=== PATIENT | male | born 1935 | race Caucasian/White ===

== ENCOUNTER → 2016-07-14 | Outpatient (CLI) | payer MEDICARE, OTHER ==
[2016-07-14 10:59] LABS: BICARBONATE 27.2 MEQ/L (21.0-32.0); POTASSIUM 4.3 MEQ/L (3.5-5.1)
== END ==
LOC: CLAB 10:18
PROVIDERS: ATTEND Internal Medicine Interventional Cardiology
DX: I10 Essential (primary) hypertension (principal)
CPT/HCPCS: 36415; 80048

== ENCOUNTER 2017-03-14 06:11 | Day surgery (SDC) | payer MEDICARE, OTHER ==
[2017-03-14] VITALS (7 sets, daily range): BP systolic 124–138; BP diastolic 70–77; PULSE 60–80; RESP 18; TEMP 97.6–98; O2SAT 96–97
[2017-03-14] MEDS ORDERED: LACTATED RINGER'S 1000 ML IV PRN (06:45)
[2017-03-14] MEDS ORDERED: SODIUM CHLORID 0.9% 500 ML IV PRN (06:45)
[2017-03-14] MEDS ORDERED: POVIDONE IODINE 5% (ANTISEPSIS KIT) 4 APPLICATIONS EACH NARE PRN (06:45)
[2017-03-14] MEDS ORDERED: METOPROLOL TARTRATE 25 MG TAB PO PRN (06:45)
[2017-03-14] MEDS ORDERED: SODIUM CHLORID 0.9% 500 ML INJ 500 ML IV SCH (06:45)
[2017-03-14] MEDS ORDERED: CHLORHEXIDINE GLUCONATE 2 % 1 PACK (2 CLOTHS) TOPICAL PRN (06:45)
[2017-03-14] MEDS ORDERED: LORazepam 1 MG TAB SL SCH (06:45)
[2017-03-14 06:58] LABS: AUTOMATED NEUTROPHIL # 3.5 TH/MM3 (1.8-7.7); BASOPHIL # 0.1 TH/MM3 (0-0.2); BASOPHIL % 0.7 % (0.0-2.0); EOSINOPHIL # 0.3 TH/MM3 (0-0.4); EOSINOPHIL % 3.9 % (0.0-4.0); HEMATOCRIT 47.2 % (39.0-51.0); HEMOGLOBIN 15.9 GM/DL (13.0-17.0); LYMPH % 34.1 % (9.0-44.0); LYMPHOCYTE # 2.4 TH/MM3 (1.0-4.8); MEAN CELL VOLUME 92.3 FL (80.0-100.0); MEAN CORPUSCULAR HEMOGLOBIN 31.2 PG (27.0-34.0); MEAN CORPUSCULAR HGB CONC 33.8 % (32.0-36.0); MEAN PLATELET VOLUME 7.7 FL (7.0-11.0); MONO % 11.1 % (0.0-8.0); MONOCYTE # 0.8 TH/MM3 (0-0.9); NEUT % 50.2 % (16.0-70.0); PLATELET COUNT 234 TH/MM3 (150-450); RED BLOOD COUNT 5.11 MIL/MM3 (4.50-5.90); RED CELL DISTRIBUTION WIDTH 13.4 % (11.6-17.2)
[2017-03-14] MEDS ORDERED: PROS5TAB PO (07:02)
[2017-03-14] MEDS ORDERED: FISHOIL PO (07:02)
[2017-03-14] MEDS ORDERED: APIX5TAB PO (07:02)
[2017-03-14] MEDS ORDERED: HYDR-3799 PO (07:02)
[2017-03-14] MEDS ORDERED: VESI10TA2 PO (07:02)
[2017-03-14] MEDS ORDERED: MULT400T PO (07:02)
[2017-03-14] MEDS ORDERED: LOSA50TA PO (07:02)
[2017-03-14] MEDS ORDERED: METO25TA3 PO (07:02)
[2017-03-14] MEDS ORDERED: BYST5TAB2 PO (07:02)
[2017-03-14] MEDS ORDERED: ROSU10 PO (07:02)
[2017-03-14] MEDS ORDERED: META1TAB17 PO (07:02)
[2017-03-14] MEDS ORDERED: RAPA8CAP PO (07:02)
[2017-03-14 07:05] LABS: INTERNATIONAL NORMALIZED RATIO 1.1 RATIO; PROTHROMBIN TIME - PATIENT 10.7 SEC (9.8-11.6)
[2017-03-14 07:14] LABS: BICARBONATE 25.8 MEQ/L (21.0-32.0); CREATININE 1.88 MG/DL (0.60-1.30)
[2017-03-14] MEDS ORDERED: HEPARIN-NS/PF INJ 1,500 ML ONE (07:50)
[2017-03-14] MEDS ORDERED: LEVOFLOXACIN 500 MG PREMIX INJ 100 ML IV ONE (07:50)
[2017-03-14] MEDS ORDERED: HEPARIN-D5W 25,000 U/250 ML 250 ML ONE (07:51)
[2017-03-14] MEDS ORDERED: ISOPROTERENOL HCL 1 MG/5 ML AMP ONE (07:51)
[2017-03-14] MEDS ORDERED: HEPARIN SODIUM - IV 10,000 UNITS/10 ML VIAL ONE (07:52)
[2017-03-14] MEDS ORDERED: PROTAMINE SULFATE 50 MG/5 ML VIAL ONE (07:52)
--- NOTE | 2017-03-14 10:32 | CATHPROC ---
UMicIt HIS Report Study Information Study Number Admission Scheduled Start Study Start [id number] Mar 14 2017 6:11AM 03/14/2017 Mar 14 2017 6:48AM [place] [facility] Electrophysiology Study Admit Source Facility Department Other [facility] - [facility] Physician and Clinical Staff Initial Zehra Foster [employer] Sabi Deleon [facility] [employer] Nani Villatoro,RT(R) TECH2 Other Anesthesia, ELIGIBILITY COUNSELOR Recorder Sonia Cary,ÁNGELA Recorder Smiley Ace RN Scrub Rigoberto Carlson,RT(R) Procedures Performed Procedure Location (Site) Vessel Name Ablation Procedure ICE CATHETER INSERT Fem Vein (left) Femoral Vein RF Ablation LT. ATRIUM LT. ATRIUM Equipment Time Welt Sewer Description Size Mfg Part Number Used/Scraped NEEDLE, TRANSSEPTAL NR 98 [id number] 08:10 [facility] Used C1 *[id number] CATHETER, TACTICATH ABLAT BUNDLE 08:10 [facility] Used 65 BUNDLE *[id number] BUNDLE [id number] CATHETER, FR7 OPTIMA SPIRAL 08:10 [facility] FR7 *[id number]- Used BUNDLE BUNDLE [id number] 08:10 [facility]UND[facility] CATHETER, JSN, QUAD BUNDLE FR 5 *[id number]- Used BUNDLE [id number] 08:10 BUNDLE-[facility] CATHETER, JSN, QUAD BUNDLE FR 5 *[id number]- Used BUNDLE [id number] 15:54 BUNDLE-[facility] CATHETER, JSN, QUAD BUNDLE FR 5 *[id number]- Used BUNDLE [id number] SET, COOL POINT TUBING 08:10 BUNDLE-[facility] *[id number]- Used BUNDLE BUNDLE SHEATH, FR8.5 STEERABLE SM 08:10 BUNDLE-[facility] 71CM [id number] Used 71CM BUNDLE SHEATH, FR8.5 STEERABLE SM 15:54 BUND[facility] 71CM [id number] Used 71CM BUNDLE COVER, TRANSDUCER CABLE 612-113 08:10 [employer] Used ACUNAV *[id number] 15:54 CORDIS/PACER SHEATH, FR10 MENDOZA 11CM FR 10 Used *[id number] 08:10 CORDIS/PACER SHEATH, FR10 MENDOZA 11CM FR 10 Used *[id number] 08:36 CORDIS/PACER SHEATH, FR9 MENDOZA 11CM FR 9 [id number] Used 15:54 CORDIS/PACER SHEATH, FR9 MENDOZA 11CM FR 9 [id number] Used [id number] 15:54 [employer] P[employer], CCL CUSTOM * Used *[id number] 08:10 [employer] PACK, CCL CUSTOM * Used *[id number] 08:10 [employer] SHEATH, FR4.5 PRELUDE 11CM FR 4.5 Used [id number]- 15:54 [employer] SHEATH, FR4.5 PRELUDE 11CM FR 4.5 Used 035ACT [id number] 15:54 NAMIC TUBING, HIGH PRESSURE 48" 48" Used *[id number] 08:10 NAMIC TUBING, HIGH PRESSURE 48" 48" Used *[id number] 08:10 NAMIC TUBING, HIGH PRESSURE 48" 48" Used *[id number] 08:10 [facility] BLANKET,WARM AIR CCL * Used *[id number] 08:10 [facility] MEDICAL ELECTRODE KIT, NATHANIEL X SURFACE * Used *[id number] 08:10 [facility] MEDICAL SHEATH, EPS, FR6 FAST CATH FR 6 Used *[id number] 255900 15:54 [facility] MEDICAL SHEATH, EPS, FR6 FAST CATH FR 6 Used *[id number] 15:54 [facility] MEDICAL SHEATH, EPS, FR7 FAST CATH FR 7 [id number] Used 08:10 [facility] MEDICAL SHEATH, EPS, FR7 FAST CATH FR 7 [id number] Used [id number] 08:10 [facility] MEDICAL SHEATH, EPS, FR8 FAST CATH FR 8 Used *[id number] CATHETER, ACUNAV FR10 ICE [id number] 09:04 GEN FR 10 Used (GEN) *[id number] History: Allergies Allergy Reaction Sulfa (Sulfonamide Antibiotics) History: Risk Factors Hypertension Dyslipidemia Yes Yes Labs Hgb (g/dl) Hct (%) RBC (MIL/MM3) WBC (l/cumm) Platelets (thousands) 11.60-17.00 35.00-51.00 4.00-5.90 4.00-11.00 150.00-450.00 15.0 47 5 7 234 Glucose (mg/dl) BUN (mg/dl) Creatinine (mg/dl) BUN:Creatinine (1:x) 74.00-106.00 7.00-18.00 0.50-1.30 10.00-20.00 109 25 1.8 13.9 Na (meq/l) K (meq/l) 136.00-145.00 3.50-5.10 140 4.3 INR (PTT:PT) 0.90-1.10 1.1 Medication Medication Total Dose (Bolus/Oral) Medication Total Dosage/Unit 1% XYLOCAINE 40 mL HEPARIN 44589 units PROTAMINE 40 mg Medications (Bolus/Oral) Medication Time Given Dosage/Unit Administered By Reason 1% XYLOCAINE 03/14/2017 8:53:10 AM 20 mL Zehra Zurita 20 mL 1% XYLOCAINE given in lab by Zehra Zurita in Left Groin via Subcutaneous. Ordered by Joshua Zurita 1% XYLOCAINE 03/14/2017 8:56:55 AM 20 mL Zehra Zurita 20 mL 1% XYLOCAINE given in lab by Zehra Zurita in Right Groin via Subcutaneous. Ordered by Alex Zurita. HEPARIN 03/14/2017 9:04:33 AM 79908 units Anesthesia, ELIGIBILITY COUNSELOR As per physicians v erbal order 52743 units HEPARIN given in lab by Anesthesia, ELIGIBILITY COUNSELOR via Peripheral IV. Ordered by Zehra Zurita. [place] son: As per physicians verbal order. HEPARIN 03/14/2017 9:23:26 AM 1000 units Anesthesia, ELIGIBILITY COUNSELOR As per physicians v erbal order 1000 units HEPARIN given in lab by Anesthesia, ELIGIBILITY COUNSELOR via Peripheral IV. Ordered by Zehra Zurita. Reas on: As per physicians verbal order. PROTAMINE 03/14/2017 10:20:15 AM 40 mg Anesthesia, ELIGIBILITY COUNSELOR As per physicians ve rbal order 40 mg PROTAMINE given in lab by Anesthesia, ELIGIBILITY COUNSELOR via Peripheral IV. Ordered by Zehra Zurita. Reason: As per physicians verbal order. Medication (Drip) Medication Time Given Dosage/Unit Concentration/Unit Diluent (ml) Solution HEPARIN DRIP 03/14/2017 9:24:42 AM 100 units/hr 87349 units 250 D5W 100 units/hr HEPARIN DRIP given in lab by Anesthesia, ELIGIBILITY COUNSELOR via Peripheral IV. Pump/Drip Flow = 1 ml/h r [place] [address] units in 250 ml. Ordered by Zehra Zurita. Reason: As per physicians verbal order. ISUPREL 03/14/2017 9:58:12 AM 20 mcg/min 1 mg 250 NaCl .9 20 mcg/min ISUPREL given in lab by Anesthesia, ELIGIBILITY COUNSELOR via Peripheral IV. Pump/Drip Flow = 300 ml/hr usi ng NaCl .9 with a concentration of 1 mg in 250 ml. Ordered by Zehra Zurita. Reason: As per physicians verbal order. LEVAQUIN 03/14/2017 8:10:12 AM 100 mL/hr 500 100 NaCl .9 100 mL/hr LEVAQUIN given in lab by Anesthesia, ELIGIBILITY COUNSELOR via Peripheral IV. Pump/Drip Flow = 0 ml/hr using NaCl .9 with a concentration of 500 in 100 ml. Ordered by Zehra Zurita. Reason: As per physicians verbal order. for reyes catheter insertion. Initial Case Assessment Cardiovascular HR Rhythm NIBP Chest Pain 60 ap 194/101 0 Edema Present Skin color Skin None Normal Warm Dry Circulatory - Right Pulses Dorsalis Pedis 1 Scale (0,1,2,3,4,d) Circulatory - Left Pulses Dorsalis Pedis 1 Scale (0,1,2,3,4,d) Circulatory - Lower Extremities Color Lower Right Color Lower Left Normal Normal Neurological State Oriented to time-place- Alert Moves all extremities person Respiration - General Respiration Rate SpO2 (%) (B/min) 18 99 Final Case Assessment Cardiovascular HR Rhythm NIBP Chest Pain 95 SR 123/65 0 Edema Present Skin color Skin None Normal Warm Dry Circulatory - Right Pulses Dorsalis Pedis 1 Scale (0,1,2,3,4,d) Circulatory - Left Pulses Dorsalis Pedis 1 Scale (0,1,2,3,4,d) Circulatory - Lower Extremities Color Lower Right Color Lower Left Normal Normal Neurological State Oriented to time-place- Drowsy Moves all extremities person Respiration - General Respiration Rate SpO2 (%) O2 (lpm) (B/min) 16 96 4 Chronological Log Time Study Chronological Log 7:50:00 Anesthesia at bedside. Assumes care of patient. Adam 7:50:00 Patient arrived via Bed. 7:50:07 Patient Name, D.O.B, / Armband Verified By R.N. 7:50:18 Consent signed by the physician and the patient and verified by the [facility] staff. 7:50:29 Pre-op and post- op instructions given; patient acknowledges understanding of instructions. 7:50:59 Verbal Stimulation=2 Physical Stimulation=2 Airway=2 Respiration=2 TOTAL=8. (0=absent, 1=li mited, 2=present) 7:51:27 Patient has been NPO for More than 6Hrs. 7:51:28 Skin Breakdown- none per pt 7:51:38 Patient Warmer Placed on the Table. 7:51:39 Disposable Defibrillator Pads Placed On Patient. 7:51:39 Rudolph Prominences Protected 7:51:41 A # 20 IV was noted in the Antecubital (left). Grade = 0 0.9ns kvo 7:51:42 A # 20 IV was noted in the Antecubital (right). Grade = 0 0.9ns kvo 7:51:42 History and physical on the chart. 7:55:00 [facility] rep present 7:56:00 paged Assessment: Initial Case, HR=60 BPM, Rhythm=ap, RFAB=017/101 mmhg, Chest Pain=0, Edema=None, Color=Normal, Skin = Warm, Dry Right Pulses: Dl Ped=1 Left Pulses: Dl Ped=1 7:56:23 Lower Right Extremities: Color=Normal Lower Left Extremities: Color=Normal Neurological: State=Alert, Ox3, YOUNG Respiration: Resp=18 B/min, SpO2=99 % 7:58:23 [facility] rep set PM at VVI [address] Fong order. 8:03:11 Table restraints applied according to hospital policy 100 mL/hr LEVAQUIN given in lab by Anesthesia, ELIGIBILITY COUNSELOR via Peripheral IV. Pump/Drip Flow = 0 ml/hr using NaCl .9 with 8:10:12 a concentration of 500 in 100 ml. Ordered by Zehra Zurita. Reason: As per physicians verbal order. for reyes catheter insertion. 8:13:33 responded 8:14:54 Anesthesiologist paged. 8:17:03 Anesthesiologist present for intubation. a #14fr reyes catheter was inserted using aseptic technique. Clear yellow urine returns. Secured to left leg and bag to 8:17:04 bedside drainage. 8:27:11 Bilateral groins prepped with 2% chlorhexidine. 8:32:40 Sterile drape applied. 8:32:58 Reference ECG taken 8:36:09 MD paged 8:36:33 MD responded 8:43:48 MD arrived. Time Out. Correct patient, procedure, procedure equipment, site and side verified with physician present. Time 8:48:41 concurred by MD, individual staff and ELIGIBILITY COUNSELOR. Time Out #2 - Consents verified, patient in correct position, all results are labled and display ed, safety precautions 8:49:46 taken, antibiotics administered. Time out concurred by MD, individual staff and ELIGIBILITY COUNSELOR in procedur e 8:49:48 Case Start 8:50:02 DELANEY commenced. 8:51:51 DELANEY completed and negative. Setting up for EP and commencing with EPS. 8:52:58 Vascular access was obtained in the Fem Vein (left). 8:53:10 20 mL 1% XYLOCAINE given in lab by Zehra Zurita in Left Groin via Subcutaneous. Ordered by Zehra Zurita. 8:53:17 Vascular access was obtained in the Fem Vein (left). 8:53:37 Vascular access was obtained in the Fem Vein (left). 8:53:58 Vascular access was obtained in the Fem Vein (left). 8:54:19 Vascular access was obtained in the Fem Art (left). 8:54:33 A SHEATH, EPS, FR6 FAST CATH FR 6 was advanced into the Fem Vein (left) using the Modified S eldinger technique. 8:54:58 A SHEATH, EPS, FR7 FAST CATH FR 7 was advanced into the Fem Vein (left) using the Modified S eldinger technique. 8:55:08 A SHEATH, FR10 MENDOZA 11CM FR 10 was advanced into the Fem Vein (left) using the Modified [place] technique. 8:55:16 A SHEATH, FR4.5 PRELUDE 11CM FR 4.5 was advanced into the Fem Art (left) using the Modified Seldinger technique. 8:56:55 20 mL 1% XYLOCAINE given in lab by Zehra Zurita in Right Groin via Subcutaneous. Ordered by Zehra Zurita. 8:58:05 Vascular access was obtained in the Fem Vein (right). 8:58:35 A SHEATH, EPS, FR8 FAST CATH FR 8 was advanced into the Fem Vein (right) using the Modified Seldinger technique. A CATHETER, JSN, QUAD BUNDLE FR 5 was advanced vis Fem Vein (left) and placed in the CS. Placem ent was visually 9:01:55 confirmed under fluoroscopy. A CATHETER, JSN, QUAD BUNDLE FR 5 was advanced vis Fem Vein (left) and placed in the HIS. Place ment was 9:02:20 visually confirmed under fluoroscopy. 9:03:05 CATHETER, ACUNAV FR10 ICE (GEN) FR 10 Was Postioned. A SHEATH, FR8.5 STEERABLE SM 71CM BUNDLE 71CM was exchanged in the Fem Vein (right). This was n ecessary in 9:03:15 order for catheter support. 9:03:27 [place] needle in. 9:03:28 Beginning Temp 35.6 53722 units HEPARIN given in lab by Anesthesia, ELIGIBILITY COUNSELOR via Peripheral IV. Ordered by Jerald Zurita Reason: As per 9:04:33 physicians verbal order. 9:05:15 A eps was advanced to the right atrium and passed through the septal wall to the left atrium . 9:05:25 [place] needle out. 9:06:56 After removing the current catheter a catheter was advanced over a wire. A CATHETER, FR7 OPTIMA SPIRAL BUNDLE FR7 was advanced via Fem Vein (right) and placed in the LA . Placement 9:06:57 was visually confirmed under fluoroscopy. 9:12:49 Mapping in progress. 9:16:29 Activated Clotting Time Drawn 9:19:46 Mapping complete 9:20:06 After removing the current catheter a catheter was advanced over a wire. A CATHETER, TACTICATH ABLAT 65 BUNDLE was advanced vis Fem Vein (right) and placed in the LA. P lacement was 9:21:35 visually confirmed under fluoroscopy. 9:21:54 RF Ablation of the LT. ATRIUM with a CATHETER, TACTICATH ABLAT 65 BUNDLE. 9:22:00 Ablation in progress. 9:22:16 ACT (Normal Range 90-180) = 326 1000 units HEPARIN given in lab by Anesthesia, ELIGIBILITY COUNSELOR via Peripheral IV. Ordered by Zehra Zurita Reason: As per 9:23:26 physicians verbal order. 100 units/hr HEPARIN DRIP given in lab by Anesthesia, ELIGIBILITY COUNSELOR via Peripheral IV. Pump/Drip Flow = 1 ml/hr using D5W 9:24:42 [place] [address] units in 250 ml. Ordered by Zehra Zurita. Reason: As per physici ans verbal order. 9:34:09 Activated Clotting Time Drawn 9:40:03 ACT (Normal Range 90-180) = 358 9:47:44 Ablation catheter was removed A CATHETER, FR7 OPTIMA SPIRAL BUNDLE FR7 was advanced via Fem Vein (right) and placed in the LA . Placement 9:48:14 was visually confirmed under fluoroscopy. 9:48:32 Mapping in progress. 9:50:39 Mapping completed. 9:51:34 Noted an area requiring further attention. Ablation resumed. A CATHETER, TACTICATH ABLAT 65 BUNDLE was advanced vis Fem Vein (right) and placed in the LA. P lacement was 9:57:45 visually confirmed under fluoroscopy. 9:57:52 RF Ablation of the LT. ATRIUM with a CATHETER, TACTICATH ABLAT 65 BUNDLE. 9:58:04 Ablation complete. Rhythm change to NSR. Tacticath Ablation cath out. Mapping catheter in. 20 mcg/min ISUPREL given in lab by Anesthesia, ELIGIBILITY COUNSELOR via Peripheral IV. Pump/Drip Flow = 300 ml/ hr using NaCl .9 9:58:12 with a concentration of 1 mg in 250 ml. Ordered by Zehra Zurita. Reason: As per physicians lisa bal order. 10:08:24 Isuprel drip stopped. 10:14:51 End of case Temp 35.6 10:16:52 All remaining catheters removed. A SHEATH, FR9 MENDOZA 11CM FR 9 was exchanged in the Fem Vein (right). This was necessary in or eduardo to minimize 10:17:15 site leakage. 10:18:00 Sheath(s) left in place, 0.9ns kvo connecte, secures, and will be removed in Holding Area 10:18:36 Ablation procedure performed: AFIB. 10:18:41 EP Procedure was performed. 40 mg PROTAMINE given in lab by Anesthesia, ELIGIBILITY COUNSELOR via Peripheral IV. Ordered by Zehra Zurita. Reason: As per :20:15 physicians verbal order. 10:20:49 PACU called. Spoke to Nani. 10:21:18 Sterile dressing applied to bilateral groin sites. 10:23:44 Pacemaker turned back on by [facility] rep DDD mode rate 60 per MD order. 10:24:21 Pt extubated to supplemental O2 @ 4l/min NC by anesthesia. Pt breathing independently. 10:25:19 Activated Clotting Time Drawn Assessment: Final Case, HR=95 BPM, Rhythm=SR, DYFC=838/65 mmhg, Chest Pain=0, Edema=None, Alexander r=Normal, Skin = Warm, Dry Right Pulses: Dl Ped=1 Left Pulses: Dl Ped=1 10:27:24 Lower Right Extremities: Color=Normal Lower Left Extremities: Color=Normal Neurological: State=Drowsy, Ox3, YOUNG Respiration: Resp=16 B/min, SpO2=96 %, O2=4 lpm 10:28:24 ACT (Normal Range 90-180) = 131 10:29:43 No case complications noted. 10:29:45 Cine recording checked. 10:29:46 Bedside Report will be given. 10:29:59 Defibrillator and ground pads removed. Skin intact. 10:30:14 Case End 10:32:03 Patient moved to stretcher Pt transported to PACU on portable O2 and monitors with ELIGIBILITY COUNSELOR and tech. Pt in stable condition breathing independently 10:35:17 and awake following commands. End Study - Contrast Media Used In Study Contrast Total Opened (mL) Total Used (mL) Total Wasted (mL) Unspecified 0 0 0 End Study - Maximum Contrast Load Max Contrast Load (mL) 232.4 End Study - Radiation Exposure Fluoro Time (minutes) 1.1 End Study - Patient Disposition Complications Transferred To Interventional Outcome No Telemetry Bed successful
[2017-03-14] MEDS ORDERED: DO NOT ADM ANY ANTICOAGULANT DRUGS PRN (10:40)
--- NOTE | 2017-03-14 10:40 | PD.CARD ---
Atrial Fibrillation Ablation PROCEDURE DATE: Mar 14, 2017 PROCEDURES PERFORMED: 1. Electrophysiology study on Isuprel infusion 2. CS cannulation 3. 3-D mapping 4. Transseptal approach 5. Right and left heart catheterization 6. Intracardiac echo 7. Radiofrequency ablation of atrial fibrillation 8. Pulmonary vein isolation 9. Posterior wall ablation 10. Mitral line creation 11. Anterior wall ablation INDICATIONS FOR THE PROCEDURE Mr. Gagnon is a 81-year-old male with hx of atrial fibrillation, very symptomatic, referred for electrophysiology study and ablation. The risks, the nature and the benefits of the procedure were clearly stated to him. The risks include pneumothorax, cardiac perforation, stroke, need for open heart surgery and even . The patient understood and agreed to proceed. DESCRIPTION OF THE PROCEDURE IN DETAIL After written informed consent was obtained prior to esophageal echocardiogram, the patient was kept on the table where he was prepped and draped in the usual sterile fashion. Conscious sedation was initiated and maintained throughout the procedure by the anesthesiologist. Once sedation was verified, the right and left inguinal areas were anesthetized with 2% Xylocaine. Using modified Seldinger technique, the left femoral vein was cannulated on three occasions, three guidewires were advanced. Over the wire a 6, 7 and a 10-Malawian Hemaquet were advanced. Then the left femoral artery was cannulated on one occasion, one guidewire was advanced. Over the wire a 4-Malawian Hemaquet was advanced. Then the right femoral vein was cannulated on one occasion, one guidewire was advanced. Over the wire a 8-Malawian Hemaquet was advanced. Then under fluoroscopic guidance through the 6 and 7-Malawian Hemaquet, two 5-Malawian Eulalia curved quadripolar electrophysiology catheters were advanced and placed around the His as well as coronary sinus. Basic interval was measured. The patient was in sinus. Through the 10-Malawian Hemaquet, a Cordis Stover AcuNav intracardiac echo catheter was advanced and placed at the right atrium. Multiple view was obtained. There was no pericardial effusion, pulmonary vein was seen, atrial septal was visualized. Then the 8-Malawian Hemaquet in the right femoral vein was exchanged for Agilis transseptal sheath that was placed all the way to the superior vena cava. Through the sheath a Maxx needle was advanced, then the sheath, the dilator and the needle were progressed until foci engaged. Once engaged, the needle was advanced. RF was delivered for 2 seconds. I was able to cross into the left atrium. Once the needle crossed, the dilator was advanced. Once the dilator crossed, the sheath was advanced. Once the sheath crossed, the dilator and the needle were removed. At this point I did flood the system and fluid movement was seen in the left atrium the indicates the sheath is in good position. The patient already received 10,000 units of heparin. The goal is to keep an ACT around 350 during ablation. Then through the sheath a [facility] 20 pulse circumferential catheter was advanced. Using [employer] endocardial solution mapping system, a two-dimensional configuration of the left atrium was obtained. Points were taken at the left superior and inferior veins, right superior and inferior veins, mitral valve, and appendages. Then through the sheath a [facility]ardo TactiCath 65cm 3.5mm irrigated tipped mapping and radiofrequency ablation catheter was advanced. Esophageal probe was placed for temperature monitoring during ablation. When it increased to 0.5 degrees Celsius above baseline, I moved to a different area of the atrium. First I did isolate the left superior and inferior vein. I did make a big [place] around the veins. Posterior was ablated. A mitral line was created. Then the right superior and inferior veins were isolated. I did remap the atrium. There is no significant signal in the veins. I did advance the circumferential catheter again into the vein. There was no signal into the vein, pacing from the vein showed no conduction to the atrium. Isuprel infusion was initiated at 10 mcg for 15 minutes. No tachyarrhythmia was induced , post Isuprel no tachyarrhythmia was induced. At that point the procedure was complete. All catheters were removed, atrial septal sheath was exchanged for 9- Malawian Hemaquet, intracardiac echo showed no pericardial effusion. There is still good flow in the pulmonary vein. The patient is going to be transferred to the recovery room. No incident report. The patient tolerated the procedure. Blood loss was minimal. FINDINGS 1. Electrocardiogram: At baseline the patient was in sinus rhythm, post procedure EKG was unchanged. 2. Basic interval: Base cycle length was around 980ms. AH at 80 and HV at 42 milliseconds. 3. Tachyarrhythmia: Atrial fibrillation was mapped and ablated. The ablation was successful. CONCLUSION Successful electrophysiology study, mapping, radiofrequency ablation of atrial fibrillation,pulmonary vein isolation, posterior ablation, mitral line creation. COMMENTS AND RECOMMENDATIONS The patient is going to be transferred to the telemetry unit. Will be observed and when stable can be discharged home. Zehra Zurita MD Mar 14, 2017 10:39
[2017-03-14] MEDS ORDERED: ATROPINE SULFATE 1 MG/ML VIAL IV PUSH PRN (10:45)
[2017-03-14] MEDS ORDERED: LORazepam 2 MG/ML VIAL IV PUSH PRN (10:45)
[2017-03-14] MEDS ORDERED: ONDANSETRON HCL 4 MG/2 ML VIAL IV PUSH PRN (10:45)
[2017-03-14] MEDS ORDERED: BACITRACIN OINT 0.9 GM PKT TOP ONE (10:45)
[2017-03-14] MEDS ORDERED: SODIUM CHLOR 0.9% 250 ML INJ 250 ML IV PRN (10:45)
[2017-03-14] MEDS ORDERED: oxyCODONE/ACETAMINOPHEN 5 MG/325 MG TAB PO PRN ×2 (10:45)
[2017-03-14] MEDS ORDERED: LIDOCAINE HCL 1% 50 ML VIAL INFIL PRN (10:45)
[2017-03-14] MEDS ORDERED: METOCLOPRAMIDE HCL 10 MG/2 ML VIAL IV PUSH PRN (10:45)
[2017-03-14] MEDS ORDERED: ROCURONIUM INJ 50 MG/5 ML SYRINGE IV PUSH ONE (12:00)
[2017-03-14] MEDS ORDERED: ONDANSETRON HCL 4 MG/2 ML VIAL IV ONE (12:00)
[2017-03-14] MEDS ORDERED: ePHEDrine/NS 25 MG/5 ML SYRINGE IV ONE (12:00)
[2017-03-14] MEDS ORDERED: DEXAMETHASONE SOD PHOS 4 MG/ML VIAL IV ONE (12:00)
[2017-03-14] MEDS ORDERED: PHENYLEPH/NS 1000 MCG/10 ML SYR IV ONE (12:00)
[2017-03-14] MEDS ORDERED: PROPOFOL 200 MG/20 ML AMP IV ONE (12:00)
[2017-03-14] MEDS ORDERED: LIDOCAINE HCL 1% PF 5 ML SYRINGE OTHER ONE (12:00)
--- NOTE | 2017-03-14 14:25 | EKG ---
Date Performed: 03/14/2017 Time Performed: 06:46:44 PTAGE: 81 years EKG: Atrial pacing Poor R wave progression - probable normal variant Abnormal ECG NO PREVIOUS TRACING DOCTOR: oMunika Trujillo Interpretating Date/Time 03/14/2017 14:24:27
[2017-03-15] VITALS: BP 128/72; PULSE 66; PULSE 72; RESP 18; TEMP 97.8; O2SAT 95
[2017-03-15 04:00] VITALS: BP 143/74; PULSE 72; RESP 18; TEMP 98; O2SAT 98
[2017-03-15 05:37] LABS: PROTHROMBIN TIME - PATIENT 10.4 SEC (9.8-11.6)
[2017-03-15 07:00] VITALS: PULSE 71
[2017-03-15 08:00] VITALS: PULSE 68
[2017-03-15 08:24] VITALS: BP 167/75; PULSE 73; RESP 17; TEMP 97.6; O2SAT 98
--- NOTE | 2017-03-15 08:38 | PD.CARD.PN ---
Subjective Subjective Remarks Feels okay. Objective Medications Current Medications Medications (Trade) Dose Ordered Sig/Roberta Route Start Time Stop Time Status Last Admin Sodium Chloride 500 ml @ 30 mls/hr [id number] IV 03/14/17 06:45 (Ativan) 1 mg QUARTER DOPER SL 03/14/17 06:45 03/17/17 06:44 Lactated Ringer's 1,000 ml @ 30 mls/hr Q24H PRN IV 03/14/17 06:45 03/17/17 06:44 Sodium Chloride 500 ml @ 30 mls/hr [id number] PRN IV 03/14/17 06:45 03/17/17 06:44 (Lopressor) 25 mg QUARTER DOPER PRN PO 03/14/17 06:45 03/17/17 06:44 (Betadine 5% Antisepsis Kit) 1 applic QUARTER DOPER PRN EACH NARE 03/14/17 06:45 03/17/17 06:44 (Chlorhexidine 2% Cloth) 3 pack QUARTER DOPER PRN TOPICAL 03/14/17 06:45 03/17/17 06:44 (Percocet 5-325 Mg) 1 tab Q4H PRN PO 03/14/17 10:45 (Percocet 5-325 Mg) 2 tab Q4H PRN PO 03/14/17 10:45 (Ativan Inj) 0.5 mg UNSCH PRN IV PUSH 03/14/17 10:45 03/15/17 10:44 (Atropine Inj) 0.5 mg UNSCH PRN IV PUSH 03/14/17 10:45 Sodium Chloride 250 ml @ 500 mls/hr ONCE PRN IV 03/14/17 10:45 03/15/17 10:44 (Reglan Inj) 10 mg Q4H PRN IV PUSH 03/14/17 10:45 (Zofran Inj) 4 mg Q4H PRN IV PUSH 03/14/17 10:45 (Xylocaine 1% Inj (50 ml)) 10 ml UNSCH PRN INFIL 03/14/17 10:45 03/15/17 10:44 Miscellaneous Information ALL NURSING DEPARTME... UNSCH PRN .XX 03/14/17 10:40 03/15/17 10:39 (Eliquis) 5 mg BID PO 03/15/17 09:00 UNV (Multaq) 400 mg BID PO 03/15/17 09:00 UNV (Proscar) 5 mg DAILY PO 03/15/17 09:00 UNV (Apresoline) 25 mg DAILY PO 03/15/17 09:00 UNV (Cozaar) 50 mg BID PO 03/15/17 09:00 UNV Vital Signs / I&O Vital Signs Date Time Temp Pulse Resp B/P (MAP) Pulse Ox O2 Delivery O2 Flow Rate FiO2 03/15/17 08:24 97.6 73 17 167/75 (105) 98 03/15/17 04:00 98.0 72 18 143/74 (97) 98 03/15/17 00:00 97.8 72 18 128/72 (90) 95 03/15/17 00:00 66 03/14/17 23:00 68 03/14/17 22:00 80 03/14/17 21:00 76 03/14/17 20:00 98.0 75 18 136/70 (92) 96 03/14/17 20:00 74 03/14/17 15:01 97.7 66 18 138/77 (97) 97 03/14/17 15:01 68 03/14/17 14:01 60 03/14/17 13:00 97.6 60 18 124/72 (89) 96 03/14/17 13:00 60 03/14/17 12:30 98.0 60 18 119/65 (83) 98 Room Air 03/14/17 12:00 60 18 121/65 (83) 98 Room Air 03/14/17 11:45 60 18 120/64 (82) 98 Nasal Cannula 2 03/14/17 11:30 63 18 105/62 (76) 99 Nasal Cannula 2 03/14/17 11:15 60 17 103/58 (73) 99 Nasal Cannula 2 03/14/17 11:10 60 18 108/63 (78) 99 Nasal Cannula 2 03/14/17 11:00 65 17 116/71 (86) 100 Nasal Cannula 2 03/14/17 10:50 65 17 128/78 (95) 99 Nasal Cannula 2 03/14/17 10:42 97.7 69 17 134/79 (97) 97 Nasal Cannula 2 I/O 03/14/17 03/14/17 03/14/17 03/15/17/17/18 1/17/18 07:00 15:00 23:00 07:00 15:00 23:00 Intake Total 1000 ml 720 ml 960 ml Output Total 510 ml 400 ml 1075 ml Balance 490 ml 320 ml -115 ml Intake Oral 720 ml 960 ml Other 1000 ml Output Urine Total 500 ml 400 ml 1075 ml Estimated Blood Loss 10 ml Physical Exam GENERAL: Well-nourished, well-developed patient. SKIN: Warm and dry. Groin site soft without erythema or bruising or bleeding. HEAD: Normocephalic. EYES: No scleral icterus. No injection or drainage. NECK: Supple, trachea midline. No JVD or lymphadenopathy. CARDIOVASCULAR: Regular rate and rhythm without murmurs, gallops, or rubs. RESPIRATORY: Breath sounds equal bilaterally. No accessory muscle use. GASTROINTESTINAL: Abdomen soft, non-tender, nondistended. EXTREMITIES: No cyanosis, or edema. NEUROLOGICAL: Awake, alert, and oriented x 3. Non-focal. Laboratory Laboratory Tests Test 03/15/17 04:06 Prothrombin Time 10.4 SEC Prothromb Time International Ratio 1.0 RATIO Activated Partial Thromboplast Time 24.5 SEC Assessment and Plan Problem List: (1) Atrial fibrillation ICD Codes: I48.91 - Unspecified atrial fibrillation Plan: Normal sinus rhythm on telemetry status post ablation. (2) S/P ablation of atrial fibrillation ICD Codes: Z98.890 - Other specified postprocedural states; Z86.79 - Personal history of other diseases of the circulatory system Plan: Discharge home, follow-up with Dr. Zurita in 3 weeks per my discussion with him. Continue teetee. Lillian Torres Mar 15, 2017 08:38
[2017-03-15] MEDS ORDERED: AMIO200T PO (08:39)
[2017-03-15 09:00] VITALS: PULSE 72
[2017-03-15] MEDS ORDERED: FINASTERIDE 5 MG TAB PO SCH (09:30)
[2017-03-15] MEDS ORDERED: APIXABAN 5 MG TABLET PO SCH (09:30)
[2017-03-15] MEDS ORDERED: hydrALAZINE HCL 25 MG TAB PO SCH (09:30)
[2017-03-15] MEDS ORDERED: DRONEDARONE 400 MG TAB PO SCH (09:30)
[2017-03-15] MEDS ORDERED: LOSARTAN 50 MG TAB PO SCH (09:45)
--- NOTE | 2017-03-15 11:09 | EKG ---
Date Performed: 03/14/2017 Time Performed: 11:39:56 PTAGE: 81 years EKG: ELECTRONIC ATRIAL PACEMAKER ABNORMAL RHYTHM ECG PREVIOUS TRACING : 03/14/2017 06.46 DOCTOR: Rajendra Bridges Interpretating Date/Time 03/15/2017 11:07:30
== END 2017-03-15 10:12 | disposition home or self-care (01) ==
LOC: HDOC 06:11 → HDIC 06:12 → HCPC 12:40 → HDOC 03-15 10:12
PROVIDERS: ATTEND Internal Medicine Interventional Cardiology
DX: I48.2 Chronic atrial fibrillation (principal)
CPT/HCPCS: 00537; 80048; 85002; 85025; 85610; 85730; 86850; 86900; 86901; 93005; 93613; 93623; 93656; 93662; C1730; C1731; C1732; C1759; C1766; C2630; J1100; J1644; J1956; J2370; J2405; J2720; J3010